=== PATIENT | male | born 1945 | race Caucasian/White ===

== ENCOUNTER 2017-08-09 06:20 | Emergency (ER) | payer MEDICARE ==
[2017-08-09] MEDS ORDERED: Acetaminophen 500 MG Tab PO ONE (07:04)
--- NOTE | 2017-08-09 07:10 | EDM.PDOC ---
ED HPI GENERAL MEDICAL PROBLEM - General Chief Complaint: Lower Extremity Injury/Pain Stated Complaint: INJURED LEFT FOOT Time Seen by Provider: 08/09/17 07:00 Source of Information: Reports: Patient History Limitations: Reports: No Limitations - History of Present Illness INITIAL COMMENTS - FREE TEXT/NARRATIVE: 71 yo male rolled his L foot last night. Now has pain to the lateral L foot. No analgesia prior to arrival. 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, Other (see below) (none) Left Foot Pain Score (Numeric/FACES): 8 - Related Data Allergies Allergy/AdvReac Type Severity Reaction Status Date / Time codeine Allergy Agitation Verified 08/09/17 06:44 morphine Allergy Agitation Verified 08/09/17 06:44 Home Meds: Home Meds Celecoxib [CeleBREX] 200 mg PO DAILY 11/20/13 [History] Hydrochlorothiazide/Lisinopril [Lisinopril-HCTZ 20-25 MG] 1 tab PO DAILY [History] Lovastatin 40 mg PO 11/20/13 [History] Omeprazole Magnesium [Prilosec Otc] 20 mg PO 11/20/13 [History] Terazosin [Hytrin] 10 mg PO BEDTIME 11/20/13 [History] traMADol [Ultram] 50 mg PO Q4H PRN 11/20/13 [History] Past Medical History Cardiovascular History: Reports: Hypertension - Past Surgical History Neurological Surgical History: Reports: C-Spine Social & Family History - Tobacco Use Smoking Status *Q: Current Every Day Smoker Years of Tobacco use: 45 Packs/Tins Daily: 0.5 Second Hand Smoke Exposure: No - Caffeine Use Caffeine Use: Reports: Coffee - Recreational Drug Use Recreational Drug Use: No Review of Systems - Review of Systems Review Of Systems: See Below Constitutional: Reports: No Symptoms Musculoskeletal: Reports: Foot Pain Skin: Reports: No Symptoms Neurological: Reports: No Symptoms ED EXAM, GENERAL - Physical Exam Exam: See Below Exam Limited By: No Limitations General Appearance: Alert, WD/WN, No Apparent Distress Extremities: Normal Inspection, Normal Range of Motion, No Pedal Edema, Other ( tender with palpation to the lateral L foot). No: Non-Tender, Pedal Edema Neurological: Alert, Oriented, CN II-XII Intact, Normal Cognition, No Motor/ Sensory Deficits Psychiatric: Normal Affect, Normal Mood Skin Exam: Warm, Dry, Intact, Normal Color, No Rash Course - Vital Signs Last Recorded V/S: Last Vital Signs Temp 35.9 C 08/09/17 06:40 Pulse 95 08/09/17 06:40 Resp 14 08/09/17 06:40 BP 142/88 H 08/09/17 06:40 Pulse Ox 98 08/09/17 06:40 - Orders/Labs/Meds Orders: Active Orders 24 hr Category Date Time Status Foot Comp Min 3V Lt [CR] Stat Exams 08/09/17 07:05 Taken Meds: Medications Discontinued Medications Generic Name Dose Route Start Last Admin Trade Name Freq PRN Reason Stop Dose Admin Acetaminophen 1,000 mg 08/09/17 07:04 08/09/17 07:08 Tylenol Extra Strength PO 08/09/17 07:05 1,000 mg ONETIME ONE Administration - Radiology Interpretation Free Text/Narrative:: L foot [id number] Departure - Departure Time of Disposition: 07:28 Disposition: Home, Self-Care 01 Condition: Good Clinical Impression: Sprain of foot, left Qualifiers: Encounter type: initial encounter Qualified Code(s): S93.602A - Unspecified sprain of left foot, initial encounter - Discharge Information Referrals: PCP,None [Primary Care Provider] - Forms: ED Department Discharge - My Orders Last 24 Hours: My Active Orders 08/09/17 07:05 Foot Comp Min 3V Lt [CR] Stat - Assessment/Plan Last 24 Hours: My Active Orders 08/09/17 07:05 Foot Comp Min 3V Lt [CR] Stat
--- NOTE | 2017-08-11 09:56 | CR ---
Foot Comp Min 3V Lt INDICATION: injury with pain 8 hrs ago FINDINGS: Pes planus and hindfoot valgus. Metatarsus adductus. Accessory navicular. Deformity of the second and first toes. No evidence for acute fracture.
== END 2017-08-09 08:05 | disposition home or self-care (01) ==
LOC: JP.ED 06:20
DX: S93.602A Unspecified sprain of left foot, initial encounter (principal); F17.210 Nicotine dependence, cigarettes, uncomplicated; I10 Essential (primary) hypertension; Z79.899 Other long term (current) drug therapy; Z88.5 Allergy status to narcotic agent; X50.9XXA Other and unspecified overexertion or strenuous movements or postures, initial encounter
CPT/HCPCS: 73630; 99284; A9270

== ENCOUNTER 2018-07-17 07:50 | Emergency (ER) | payer MEDICARE ==
[2018-07-17] MEDS ORDERED: Tetracaine HCl/PF 0.5% 4 ML Bottle EYELF ONE (08:18)
--- NOTE | 2018-07-17 08:35 | EDM.PDOC ---
ED HPI GENERAL MEDICAL PROBLEM - General Chief Complaint: Eye Problems Stated Complaint: GOT SOMETHING IN HIS EYE Time Seen by Provider: 07/17/18 08:20 Source of Information: Reports: Patient, RN History Limitations: Reports: No Limitations - History of Present Illness INITIAL COMMENTS - FREE TEXT/NARRATIVE: 72 yo male here with L eye pain since early last evening. He was out in the wind and something blew into his eye. He tried to wash it out, but the eye is still painful. He reports minimal blurring or photophobia. 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) (none) Left Eye Pain Score (Numeric/FACES): 10 - Related Data Allergies Allergy/AdvReac Type Severity Reaction Status Date / Time codeine Allergy Agitation Verified 07/17/18 08:09 morphine Allergy Agitation Verified 07/17/18 08:09 Home Meds: Home Meds Celecoxib [CeleBREX] 200 mg PO DAILY 11/20/13 [History] Hydrochlorothiazide/Lisinopril [Lisinopril-HCTZ 20-25 MG] 1 tab PO DAILY [History] Lovastatin 40 mg PO DAILY 11/20/13 [History] Omeprazole Magnesium [Prilosec Otc] 20 mg PO DAILY 11/20/13 [History] Terazosin [Hytrin] 10 mg PO BEDTIME 11/20/13 [History] traMADol [Ultram] 50 mg PO Q4H PRN 11/20/13 [History] Past Medical History Cardiovascular History: Reports: Hypertension - Infectious Disease History Infectious Disease History: Reports: Measles - Past Surgical History Neurological Surgical History: Reports: C-Spine Social & Family History - Tobacco Use Smoking Status *Q: Former Smoker Years of Tobacco use: 52 Packs/Tins Daily: 1 Used Tobacco, but Quit: Yes Month/Year Tobacco Last Used: Second Hand Smoke Exposure: No - Caffeine Use Caffeine Use: Reports: Coffee - Alcohol Use Days Per Week of Alcohol Use: 7 Number of Drinks Per Day: 2 Total Drinks Per Week: 14 - Recreational Drug Use Recreational Drug Use: No ED ROS GENERAL - Review of Systems Review Of Systems: See Below Constitutional: Reports: No Symptoms HEENT: Reports: Eye Pain (left). Denies: Eye Discharge Respiratory: Reports: No Symptoms Skin: Reports: No Symptoms Neurological: Reports: No Symptoms ED EXAM GENERAL W FULL EYE - Physical Exam Exam: See Below Exam Limited By: No Limitations General Appearance: Alert, WD/WN, No Apparent Distress Eye Exam: Left Eye: Conjunctival Injection (slight), Corneal Abrasion ( superficial and just beneath the L pupil), Bilateral Eye: EOMI Visual Acuity (R) 20/: 30 Visual Acuity (L) 20/: 30 With Correction: No Eyelids: Bilateral: Normal Appearance Conjunctiva & Sclera: Left: Injected (slight) Cornea Exam: Left: Corneal Abrasion (eliptical and just below the pupil, superficial), Examined with Flourescein Extraocular Movements: Bilateral: Intact Ears: Hearing Grossly Normal Nose: Normal Inspection, No Blood Head: Atraumatic, Normocephalic Neck: Normal Inspection Extremities: Normal Inspection Neurological: Alert, Oriented, CN II-XII Intact, Normal Cognition, No Motor/ Sensory Deficits Psychiatric: Normal Affect, Normal Mood Skin Exam: Warm, Dry, Intact, Normal Color, No Rash Course - Vital Signs Last Recorded V/S: Last Vital Signs Temp 35.2 C 07/17/18 08:16 Pulse 91 07/17/18 08:16 Resp 18 07/17/18 08:16 BP 120/72 07/17/18 08:16 Pulse Ox 96 07/17/18 08:16 - Orders/Labs/Meds Meds: Medications Discontinued Medications Generic Name Dose Route Start Last Admin Trade Name Freq PRN Reason Stop Dose Admin Tetracaine HCl 1 ml 07/17/18 08:18 07/17/18 08:24 Tetracaine 0.5% Steri-Unit Viviana EYELF 07/17/18 08:19 1 ml ASDIRECTED ONE Administration Departure - Departure Time of Disposition: 08:40 Disposition: Home, Self-Care 01 Condition: Good Clinical Impression: Corneal abrasion, left Qualifiers: Encounter type: initial encounter Qualified Code(s): S05.02XA - Injury of conjunctiva and corneal abrasion without foreign body, left eye, initial encounter - Discharge Information *PRESCRIPTION DRUG MONITORING PROGRAM REVIEWED*: No *COPY OF PRESCRIPTION DRUG MONITORING REPORT IN PATIENT TC: No Referrals: PCP,None [Primary Care Provider] - Additional Instructions: No eye rubbing. Avoid lights. Take ibuprofen and/or acetaminophen for pain relief. Substitute [place] for acetaminophen if more pain relief is required. Use the prescribed eye ointment for a couple of days. If not better by late tomorrow then recheck.
[2018-07-17] MEDS ORDERED: Diphtheria,Pertussis(Acell),Tetanus Vaccine 0.5 ML SDV IM ONE (08:36)
== END 2018-07-17 08:54 | disposition home or self-care (01) ==
LOC: JP.ED 07:50
DX: S05.02XA Injury of conjunctiva and corneal abrasion without foreign body, left eye, initial encounter (principal); I10 Essential (primary) hypertension; Z87.891 Personal history of nicotine dependence; Z88.5 Allergy status to narcotic agent; Z79.899 Other long term (current) drug therapy; X58.XXXA Exposure to other specified factors, initial encounter
CPT/HCPCS: 90471; 90715; 99283

== ENCOUNTER 2019-02-26 09:58 | Emergency (ER) | payer MEDICARE ==
[2019-02-26] MEDS ORDERED: Sodium Chloride 0.9% 10 ML Syringe FLUSH PRN (10:23)
[2019-02-26] MEDS ORDERED: Ondansetron 4 MG/2 ML SDV IVPUSH ONE (10:24)
--- NOTE | 2019-02-26 10:27 | EDM.PDOC ---
ED HPI GENERAL MEDICAL PROBLEM - General Chief Complaint: Gastrointestinal Problem Stated Complaint: VOMITING/DIARRHEA Time Seen by Provider: 02/26/19 10:20 Source of Information: Reports: Patient, RN Notes Reviewed History Limitations: Reports: No Limitations - History of Present Illness INITIAL COMMENTS - FREE TEXT/NARRATIVE: 73-year-old gentleman presents emergency department today complaint of nausea vomiting diarrhea, he states he may have been exposed to possible food poisoning when he ate a local restaurant 3 days prior. He states about half hour after eating at the restaurant had explosive diarrhea with nausea and vomiting. He continues to feel nauseous was evaluated at the walk-in clinic couple days prior. Left Chest Pain Score (Numeric/FACES): 4 - Related Data Allergies Allergy/AdvReac Type Severity Reaction Status Date / Time codeine Allergy Agitation Verified 02/26/19 10:09 morphine Allergy Agitation Verified 02/26/19 10:09 Home Meds: Home Meds Celecoxib [CeleBREX] 200 mg PO DAILY 11/20/13 [History] Hydrochlorothiazide/Lisinopril [Lisinopril-HCTZ 20-25 MG] 1 tab PO DAILY [History] Lovastatin 40 mg PO DAILY 11/20/13 [History] Omeprazole Magnesium [Prilosec Otc] 20 mg PO DAILY 11/20/13 [History] Terazosin [Hytrin] 10 mg PO BEDTIME 11/20/13 [History] traMADol [Ultram] 50 mg PO Q4H PRN 11/20/13 [History] Acetaminophen/HYDROcodone [[place] 325-5 MG] 1 - 2 tab PO Q6H PRN #7 tab 07/17/18 [Rx] Albuterol Sulfate [Albuterol Sulfate Hfa] 2 puff IH BID PRN 02/26/19 [History] Levothyroxine [Synthroid] 50 mcg PO ACBREAKFAST 02/26/19 [History] Past Medical History Cardiovascular History: Reports: Hypertension Gastrointestinal History: Reports: GERD Musculoskeletal History: Reports: Other (See Below) Other Musculoskeletal History: 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 Endocrine/Metabolic History: Reports: Hypothyroidism - Infectious Disease History Infectious Disease History: Reports: Measles - Past Surgical History Neurological Surgical History: Reports: C-Spine Social & Family History - Tobacco Use Smoking Status *Q: Never Smoker - Caffeine Use Caffeine Use: Reports: Coffee - Alcohol Use Days Per Week of Alcohol Use: 7 Number of Drinks Per Day: 1 Total Drinks Per Week: 7 Date of Last Drink: 02/23/19 - Recreational Drug Use Recreational Drug Use: No ED ROS GENERAL - Review of Systems Review Of Systems: See Below Constitutional: Reports: Weakness Respiratory: Reports: No Symptoms Cardiovascular: Reports: No Symptoms GI/Abdominal: Reports: Diarrhea, Nausea, Vomiting. Denies: Abdominal Pain : Reports: No Symptoms ED EXAM, GI/ABD - Physical Exam Exam: See Below Exam Limited By: No Limitations General Appearance: Alert, WD/WN, No Apparent Distress Respiratory/Chest: No Respiratory Distress, Lungs Clear, Normal Breath Sounds, No Accessory Muscle Use, Chest Non-Tender Cardiovascular: Regular Rate, Rhythm, No Murmur GI/Abdominal Exam: Normal Bowel Sounds, Soft, Non-Tender Course - Vital Signs Last Recorded V/S: Last Vital Signs Temp 98.6 F 02/26/19 10:19 Pulse 101 H 02/26/19 10:19 Resp 25 H 02/26/19 11:28 BP 115/72 02/26/19 11:28 Pulse Ox 96 02/26/19 11:28 - Orders/Labs/Meds Orders: Active Orders 24 hr Category Date Time Status Peripheral IV Care [RC] . DIRECTED Care 02/26/19 10:23 Active Lactated Ringers [Ringers, Lactated] 1,000 ml Med 02/26/19 10:30 Active IV ASDIRECTED Sodium Chloride 0.9% [Saline Flush] Med 02/26/19 10:23 Active 10 ml FLUSH ASDIRECTED PRN Peripheral IV Insertion Adult [OM.PC] Urgent Oth 02/26/19 10:23 Ordered Medication Orders Lactated Ringer's (Ringers, Lactated) 1,000 mls @ 999 mls/hr IV ASDIRECTED CORTEZ Last Admin: 02/26/19 10:30 Dose: 999 mls/hr Sodium Chloride (Saline Flush) 10 ml FLUSH ASDIRECTED PRN PRN Reason: Keep Vein Open Last Admin: 02/26/19 10:38 Dose: 10 ml Labs: Laboratory Tests 02/26/19 02/26/19 02/26/19 Range/Units 10:30 10:30 10:30 WBC 6.2 (4.5-11.0) K/uL RBC 4.31 (4.30-5.90) M/uL Hgb 13.9 (12.0-15.0) g/dL Hct 41.1 (40.0-54.0) % MCV 95 (80-98) fL MCH 32 H (27-31) pg MCHC 34 (32-36) % Plt Count 187 (150-400) K/uL Neut % (Auto) 64 (36-66) % Lymph % (Auto) 21 L (24-44) % [place] % (Auto) 14 H (2-6) % Eos % (Auto) 1 L (2-4) % Baso % (Auto) 1 (0-1) % Sodium 135 L (140-148) mmol/L Potassium 3.6 (3.6-5.2) mmol/L Chloride 99 L (100-108) mmol/L Carbon Dioxide 22 (21-32) mmol/L Anion Gap 17.6 H (5.0-14.0) mmol/L BUN 24 H (7-18) mg/dL Creatinine 1.6 H (0.8-1.3) mg/dL Est Cr Clr Drug Dosing 39.70 mL/min Estimated GFR (MDRD) 43 L (>60) Glucose 121 H (74-106) mg/dL Lactic Acid 1.6 (0.4-2.0) mmol/L Calcium 8.6 (8.5-10.1) mg/dL Total Bilirubin 0.4 (0.2-1.0) mg/dL AST 22 (15-37) U/L ALT 30 (12-78) U/L Alkaline Phosphatase 73 (46-116) U/L Troponin I < 0.017 (0.000-0.056) ng/mL Total Protein 7.2 (6.4-8.2) g/dL Albumin 3.7 (3.4-5.0) g/dL Globulin 3.5 (2.3-3.5) g/dL Albumin/Globulin Ratio 1.1 L (1.2-2.2) Lipase 131 (73-393) U/L Urine Color (YELLOW) Urine Appearance (CLEAR) Urine pH (5.0-8.0) Ur Specific [place] (1.008-1.030) Urine Protein (NEGATIVE) mg/dL Urine Glucose (UA) (NEGATIVE) mg/dL Urine Ketones (NEGATIVE) mg/dL Urine Occult Blood (NEGATIVE) Urine Nitrite (NEGATIVE) Urine Bilirubin (NEGATIVE) Urine Urobilinogen (0.2-1.0) EU/dL Ur Leukocyte Esterase (NEGATIVE) Urine RBC (0-5) Urine WBC (0-5) Ur Epithelial Cells Amorphous Sediment Urine Bacteria Urine Mucus 02/26/19 Range/Units 11:54 WBC (4.5-11.0) K/uL RBC (4.30-5.90) M/uL Hgb (12.0-15.0) g/dL Hct (40.0-54.0) % MCV (80-98) fL MCH (27-31) pg MCHC (32-36) % Plt Count (150-400) K/uL Neut % (Auto) (36-66) % Lymph % (Auto) (24-44) % [place] % (Auto) (2-6) % Eos % (Auto) (2-4) % Baso % (Auto) (0-1) % Sodium (140-148) mmol/L Potassium (3.6-5.2) mmol/L Chloride (100-108) mmol/L Carbon Dioxide (21-32) mmol/L Anion Gap (5.0-14.0) mmol/L BUN (7-18) mg/dL Creatinine (0.8-1.3) mg/dL Est Cr Clr Drug Dosing mL/min Estimated GFR (MDRD) (>60) Glucose (74-106) mg/dL Lactic Acid (0.4-2.0) mmol/L Calcium (8.5-10.1) mg/dL Total Bilirubin (0.2-1.0) mg/dL AST (15-37) U/L ALT (12-78) U/L Alkaline Phosphatase (46-116) U/L Troponin I (0.000-0.056) ng/mL Total Protein (6.4-8.2) g/dL Albumin (3.4-5.0) g/dL Globulin (2.3-3.5) g/dL Albumin/Globulin Ratio (1.2-2.2) Lipase (73-393) U/L Urine Color Yellow (YELLOW) Urine Appearance Clear (CLEAR) Urine pH 6.5 (5.0-8.0) Ur Specific [place] 1.015 (1.008-1.030) Urine Protein Negative (NEGATIVE) mg/dL Urine Glucose (UA) Negative (NEGATIVE) mg/dL Urine Ketones Negative (NEGATIVE) mg/dL Urine Occult Blood Negative (NEGATIVE) Urine Nitrite Negative (NEGATIVE) Urine Bilirubin Negative (NEGATIVE) Urine Urobilinogen 0.2 (0.2-1.0) EU/dL Ur Leukocyte Esterase Negative (NEGATIVE) Urine RBC Not seen (0-5) Urine WBC Not seen (0-5) Ur Epithelial Cells Not seen Amorphous Sediment Not seen Urine Bacteria Not seen Urine Mucus Not seen Meds: Medications Generic Name Dose Route Start Last Admin Trade Name Freq PRN Reason Stop Dose Admin Lactated Ringer's 1,000 mls @ 999 mls/hr 02/26/19 10:30 02/26/19 10:30 Ringers, Lactated IV 999 mls/hr ASDIRECTED CORTEZ Administration Sodium Chloride 10 ml 02/26/19 10:23 02/26/19 10:38 Saline Flush FLUSH 10 ml ASDIRECTED PRN Administration Keep Vein Open Discontinued Medications Generic Name Dose Route Start Last Admin Trade Name Freq PRN Reason Stop Dose Admin Lactated Ringer's 1,000 mls @ 999 mls/hr 02/26/19 11:22 02/26/19 11:33 Ringers, Lactated IV 02/26/19 12:22 999 mls/hr BOLUS ONE Administration Ondansetron HCl 4 mg 02/26/19 10:24 02/26/19 10:32 Zofran IVPUSH 02/26/19 10:25 4 mg ONETIME ONE Administration Departure - Departure Time of Disposition: 12:40 Disposition: Home, Self-Care 01 Condition: Fair Clinical Impression: Gastroenteritis - Discharge Information Instructions: Viral Gastroenteritis, Adult Referrals: PCP,None [Primary Care Provider] - Forms: ED Department Discharge Additional Instructions: Use Zofran as needed to control nausea and vomiting symptoms, continue to push fluids and a bland diet, please followup with your primary care provider in 3- 5 days if not better, please call return to the emergency department with worsening of symptoms. - My Orders Last 24 Hours: My Active Orders 02/26/19 10:23 Peripheral IV Care [RC] . DIRECTED Sodium Chloride 0.9% [Saline Flush] 10 ml FLUSH ASDIRECTED PRN Peripheral IV Insertion Adult [OM.PC] Urgent 02/26/19 10:30 Lactated Ringers [Ringers, Lactated] 1,000 ml IV ASDIRECTED - Assessment/Plan Last 24 Hours: My Active Orders 02/26/19 10:23 Peripheral IV Care [RC] . DIRECTED Sodium Chloride 0.9% [Saline Flush] 10 ml FLUSH ASDIRECTED PRN Peripheral IV Insertion Adult [OM.PC] Urgent 02/26/19 10:30 Lactated Ringers [Ringers, Lactated] 1,000 ml IV ASDIRECTED Plan: Assessment Acuity = acute Site and laterality = gastroenteritis with dehydration Etiology = probable viral Manifestations = vomiting, diarrhea Location of injury = Home Lab values = CBC unremarkable creatinine elevated 1.6 consistent with acute renal failure stage G3 B, troponin was negative, urinalysis also unremarkable Plan He had some improvement with Zofran and fluids provided in the emergency department discharged home with Zofran 4 mg ODT 1 tab p.o. 3 times daily as needed total #5 having continue to push fluids follow-up primary care 3 to 5 days if not better This note was dictated using [employer] voice recognition software please call with any questions on syntax or grammar.
[2019-02-26] MEDS ORDERED: Lactated Ringers 1,000 ML IV SCH (10:30)
[2019-02-26] MEDS ORDERED: Lactated Ringers 1,000 ML IV ONE (11:22)
== END 2019-02-26 13:05 | disposition home or self-care (01) ==
LOC: JP.ED 09:58
DX: K52.9 Noninfective gastroenteritis and colitis, unspecified (principal); E86.0 Dehydration; I10 Essential (primary) hypertension; K21.9 Gastro-esophageal reflux disease without esophagitis; Z79.899 Other long term (current) drug therapy; Z88.5 Allergy status to narcotic agent
CPT/HCPCS: 36415; 80053; 81001; 83605; 83690; 84484; 85025; 96361; 96374; 99284; J2405; J7120

== ENCOUNTER 2024-02-29 11:07 | Emergency (ER) | payer MEDICARE ==
[2024-02-29] MEDS: Ketorolac 30 MG/ML SDV IM ONE (12:32)
== END 2024-02-29 12:30 | disposition home or self-care (01) ==
LOC: JP.ED 11:07
DX: M54.50 Low back pain, unspecified (principal); G89.29 Other chronic pain; I10 Essential (primary) hypertension; J44.9 Chronic obstructive pulmonary disease, unspecified; K21.9 Gastro-esophageal reflux disease without esophagitis; E03.9 Hypothyroidism, unspecified; Z86.16 Personal history of COVID-19; Z87.891 Personal history of nicotine dependence; Z88.5 Allergy status to narcotic agent; Z79.51 Long term (current) use of inhaled steroids; Z79.890 Hormone replacement therapy; Z79.899 Other long term (current) drug therapy
CPT/HCPCS: 96372; 99283; J1885; 99284

== ENCOUNTER 2024-07-31 16:30 | Emergency (ER) | payer MEDICARE ==
[2024-07-31 17:57] LABS: LYME AB IgG Negative (Negative); LYME AB IgM Negative (Negative)
== END 2024-07-31 17:14 | disposition home or self-care (01) ==
LOC: JP.ED 16:30
DX: S30.860A Insect bite (nonvenomous) of lower back and pelvis, initial encounter (principal); I10 Essential (primary) hypertension; K21.9 Gastro-esophageal reflux disease without esophagitis; Z88.5 Allergy status to narcotic agent; Z88.8 Allergy status to other drugs, medicaments and biological substances; Z79.890 Hormone replacement therapy; Z79.899 Other long term (current) drug therapy; Z86.16 Personal history of COVID-19; W57.XXXA Bitten or stung by nonvenomous insect and other nonvenomous arthropods, initial encounter
CPT/HCPCS: 36415; 86618; 99282

== ENCOUNTER 2025-01-23 02:47 | Emergency (ER) | payer MEDICARE ==
[2025-01-23] MEDS: methylPREDNISolone Sodium Succinate 125 MG/2 ML SDV IVPUSH ONE (03:20)
[2025-01-23] MEDS: diphenhydrAMINE 50 MG/ML SDV IVPUSH ONE (03:22)
[2025-01-23 03:24] LABS: BASOPHILS ABSOLUTE AUTO 0.05 K/uL (0.00-0.10); BASOPHILS PERCENT AUTO 0.9 % (0.1-1.3); EOSINOPHILS ABSOLUTE AUTO 0.19 K/uL (0.00-0.40); EOSINOPHILS PERCENT AUTO 3.5 % (0.0-5.4); IMMATURE GRAN ABSOLUTE AUTO 0.02 K/uL (0.00-0.23); IMMATURE GRAN PERCENT AUTO 0.4 % (0.0-0.7); LYMPHOCYTES ABSOLUTE AUTO 1.47 K/uL (0.8-3.3); LYMPHOCYTES PERCENT AUTO 27.4 % (11.4-47.7); MONOCYTES ABSOLUTE AUTO 0.55 K/uL (0.20-0.90); MONOCYTES PERCENT AUTO 10.3 % (3.3-12.6); NEUTROPHILS ABSOLUTE AUTO 3.08 K/uL (1.0-7.6); NEUTROPHILS PERCENT AUTO 57.5 % (40.0-78.1); PLATELET COUNT,PLT 182 K/uL (130-375); RED BLOOD CELL COUNT 3.98 M/uL (4.14-5.76); WHITE BLOOD CELL COUNT,WBC 5.4 K/uL (3.2-11.0)
[2025-01-23 03:45] LABS: A/G RATIO 1.3 (1.2-2.2); ALANINE AMINOTRANSFERASE,ALT 29 U/L (12-78); ASPARTATE AMNIOTRANSFERASE,AST 41 U/L (15-37); BILIRUBIN TOTAL 0.4 mg/dL (0.2-1.0); BLOOD UREA NITROGEN,BUN 19 mg/dL (7-18); CARBON DIOXIDE,CO2 24 mmol/L (21-32); CHLORIDE,CL 100 mmol/L (100-108); CREATININE 1.2 mg/dL (0.8-1.3); EST CRCL DRUG DOSING (CG) 49.08 mL/min; ESTIMATED GFR 62 mL/min (>60); GLUCOSE RANDOM 96 mg/dL (74-106); POTASSIUM,K 3.9 mmol/L (3.6-5.2); PROTEIN TOTAL,TP 7.1 g/dL (6.4-8.2); SODIUM,NA 135 mmol/L (140-148)
== END 2025-01-23 04:35 | disposition home or self-care (01) ==
LOC: JP.ED 02:47
DX: T78.40XA Allergy, unspecified, initial encounter (principal); K13.0 Diseases of lips; I10 Essential (primary) hypertension; J44.9 Chronic obstructive pulmonary disease, unspecified; E03.9 Hypothyroidism, unspecified; K21.9 Gastro-esophageal reflux disease without esophagitis; Z93.3 Colostomy status; Z88.5 Allergy status to narcotic agent; Z79.899 Other long term (current) drug therapy; Z79.890 Hormone replacement therapy; Z87.891 Personal history of nicotine dependence; X58.XXXA Exposure to other specified factors, initial encounter
CPT/HCPCS: 36415; 80053; 85025; 96374; 96375; 99283; J1200; J1308; J2919